=== PATIENT | female | born 1945 | race Caucasian/White ===

== ENCOUNTER → 2017-02-14 | Outpatient (CLI) | payer BC ==
[~2017-02-14] MED LIST: ASCO1CAP3 PO; BROM0.07 OPL; DVN/160 PO; LUTE6TAB PO; LYSINE PO; MAGN400T6 PO; PRED1SUS3 OPL; TURM1CAP4 PO
--- NOTE | 2017-02-14 13:11 | MAMMOGRAPHY REPORT ---
BILATERAL DIGITAL SCREENING MAMMOGRAM WITH CAD: 02/14/2017 TECHNIQUE: Current study was also evaluated with a Computer Aided Detection (CAD) system. Bilatera l CC and MLO views were obtained. COMPARISON: Comparison is made to exams dated: 02/09/2016 mammogram, 02/07/2015 mammogram, 01/31/2014 m ammogram, 01/28/2013 mammogram - [facility], 07/05/2010 mammogram, and 05/29/2006 mamm ogram - [facility]. BREAST COMPOSITION: The tissue of both breasts is heterogeneously dense, which may obscure small ma sses. FINDINGS: No suspicious masses, calcifications, or areas of architectural distortion are noted in e ither breast. There has been no significant interval change compared to prior exams. Scattered bilat eral benign-appearing calcifications are not significantly changed. IMPRESSION: ACR BI-RADS CATEGORY 2: BENIGN There is no mammographic evidence of malignancy. A 1 year screening mammogram is recommended. The p atient will receive written notification of the results. Approximately 10% of breast cancers are not detected with mammography. A negative mammographic repor t should not delay biopsy if a clinically suggestive mass is present. Briana Gavin M.D. /:02/14/2017 12:35:41 Belt Maker Helper: Kathryn VALENTIN(Chivo)(M), [facility] letter sent: Normal 1/2 BI-RADS Code: ACR BI-RADS Category 2: Benign
== END | disposition home or self-care (01) ==
LOC: C.MAMM 09:54
PROVIDERS: ATTEND Family Medicine
DX: Z12.31 Encounter for screening mammogram for malignant neoplasm of breast (principal)

== ENCOUNTER → 2018-02-16 | Outpatient (CLI) | payer BC ==
--- NOTE | 2018-02-17 13:18 | MAMMOGRAPHY REPORT ---
BILATERAL DIGITAL SCREENING MAMMOGRAM TOMOSYNTHESIS WITH CAD: 02/16/2018 CLINICAL HISTORY: Routine screening. Patient has no complaints. TECHNIQUE: Breast tomosynthesis in addition to standard 2D mammography was performed. Current study was also evaluated with a Computer Aided Detection (CAD) system. COMPARISON: Comparison is made to exams dated: 02/14/2017 mammogram, 02/09/2016 mammogram, 02/07/2015 m ammogram, 01/31/2014 mammogram, 01/28/2013 mammogram - [facility], and 07/05/2010 mammog patric [facility]. BREAST COMPOSITION: The tissue of both breasts is heterogeneously dense, which may obscure small mas ses. FINDINGS: There are scattered benign-appearing rim and round microcalcifications. A stable grouping of punctate micro calcifications in the lower inner posterior right breast is unchanged dating back t o at least 2009, therefore likely benign. No new suspicious mass, architectural distortion or cluste r of microcalcifications is seen. IMPRESSION: ACR BI-RADS CATEGORY 1: NEGATIVE There is no mammographic evidence of malignancy. A 1 year screening mammogram is recommended. The pa tient will receive written notification of the results. Approximately 10% of breast cancers are not detected with mammography. A negative mammographic report should not delay biopsy if a clinically suggestive mass is present. Lilli Reagan M.D. ay/:02/16/2018 16:26:13 Reading Instructor: Arpita VALENTIN(Chivo)(Wendy)(BD), [facility] letter sent: Normal 1/2 BI-RADS Code: ACR BI-RADS Category 1: Negative
== END | disposition home or self-care (01) ==
LOC: C.MAMM 09:50
PROVIDERS: ATTEND Family Medicine
DX: Z12.31 Encounter for screening mammogram for malignant neoplasm of breast (principal)